=== PATIENT | male | born 1970 | race Caucasian/White ===

== ENCOUNTER → 2016-12-29 | Outpatient (CLI) | payer MEDICAID ==
[2016-12-29 12:11] LABS: Hemoglobin A1C 5.6 % (4.2-6.1)
== END | disposition home or self-care (01) ==
LOC: LABWHC1 10:19
PROVIDERS: ATTEND Internal Medicine
DX: R73.9 Hyperglycemia, unspecified (principal)
CPT/HCPCS: 36415; 82947; 83036

== ENCOUNTER → 2017-06-16 | Outpatient (CLI) | payer MEDICAID ==
[2017-06-16 09:38] LABS: Basophils % (A) 0 %; CH 31.4; CHCM 34.6; Eosinophils # (A) 0.1 k/uL (0-0.7); Eosinophils % (A) 2 %; HCT 43.7 % (39.0-53.0); HDW 2.62; HGB 14.7 gm/dL (13.0-17.5); Luc # (Auto) 0.14; Luc % (Auto) 3; Lymphocytes # (A) 1.5 k/uL (1.0-4.8); Lymphocytes % (A) 27 %; MCH 30.5 pg (25.0-35.0); MCHC 33.6 g/dL (31.0-37.0); Mean Platelet Volume 7.6; Monocytes # (A) 0.3 k/uL (0-1.0); Monocytes % (A) 5 %; Neutrophils # (A) 3.5 k/uL (1.3-7.7); Neutrophils % (A) 63 %; RDW 12.3 % (11.5-15.5); WBC 5.5 k/uL (3.8-10.6); WBC (Perox) 5.66
[2017-06-16 10:47] LABS: ALT 63 U/L (21-72); AST 37 U/L (17-59); Alkaline Phosphatase 57 U/L (38-126); Anion Gap 10 mmol/L; Blood Urea Nitrogen 16 mg/dL (9-20); Calcium 9.4 mg/dL (8.4-10.2); Carbon Dioxide 23 mmol/L (22-30); Chloride 111 mmol/L (98-107); Cholesterol 142 mg/dL (<200); Glucose 125 mg/dL (74-99); HDL Cholesterol 60 mg/dL (40-60); Non-African American GFR(MDRD) >60 (>60 ml/min/1.73 sqM); Potassium 4.2 mmol/L (3.5-5.1); Sodium 144 mmol/L (137-145); Total Bilirubin 0.2 mg/dL (0.2-1.3); Total Protein 6.8 g/dL (6.3-8.2)
== END | disposition home or self-care (01) ==
LOC: LABWHC1 09:05
PROVIDERS: ATTEND Internal Medicine
DX: E78.00 Pure hypercholesterolemia, unspecified (principal); Z13.29 Encounter for screening for other suspected endocrine disorder
CPT/HCPCS: 36415; 80053; 80061; 84439; 84443; 85025

== ENCOUNTER → 2017-10-13 | Outpatient (CLI) | payer MEDICAID ==
[2017-10-13 17:56] LABS: Hemoglobin A1C 5.6 % (4.0-6.0)
== END | disposition home or self-care (01) ==
LOC: LABWHC1 08:30
PROVIDERS: ATTEND Internal Medicine
DX: R73.9 Hyperglycemia, unspecified (principal)
CPT/HCPCS: 36415; 83036

== ENCOUNTER 2019-09-22 09:59 | Emergency (ER) | payer MEDICAID ==
[2019-09-22] MEDS ORDERED: KETOROLAC 30 MG/ML 1 ML VIAL IVP STA (10:06)
[2019-09-22] MEDS ORDERED: SODIUM CHLORIDE 0.9% 1,000 ML IV STA (10:06)
[2019-09-22] MEDS ORDERED: ASPIRIN 81 MG PO STA (10:06)
[2019-09-22 10:10] VITALS: TEMP 98.3
--- NOTE | 2019-09-22 10:20 | ED ---
Chest Pain HPI - General Stated Complaint: Chest pain Time Seen by Provider: 09/22/19 10:00 Source: patient, EMS, RN notes reviewed - History of Present Illness Initial Comments: This is a 49-year-old male with no personal history of heart disease and a strong family history who also is a smoker who presents by EMS with complaints of left shoulder pain it radiates into his neck and also radiates down his left arm. He states is about 6/10 severity at this time. He also has some slight dizziness associated with this. 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 He states it hurts to lay in the left side. He denies any other modifying factors at this time. MD Complaint: chest pain - Related Data Home Medications Medication Instructions Recorded Confirmed ALPRAZolam [Xanax] 0.5 mg PO TID 03/08/16 09/22/19 Aspirin 325 mg PO DAILY 03/08/16 09/22/19 Pravastatin Sodium [Pravachol] 40 mg PO DAILY 03/08/16 09/22/19 traMADol HCL [Ultram] 50 mg PO Q6HR PRN 03/08/16 09/22/19 Previous Rx's Medication Instructions Recorded Cyclobenzaprine [Flexeril] 10 mg PO TID #14 tab 09/22/19 Ibuprofen 800 mg PO Q6HR PRN #20 tablet 09/22/19 Meclizine [Antivert] 25 mg PO TID #20 tab 09/22/19 Allergies Allergy/AdvReac Type Severity Reaction Status Date / Time No Known Allergies Allergy Verified 09/22/19 10:37 Review of Systems ROS Statement: Those systems with pertinent positive or pertinent negative responses have been documented in the HPI. ROS Other: All systems not noted in ROS Statement are negative. EKG Findings - EKG Results: EKG: interpreted by SELINA, sinus rhythm (Normal sinus rhythm of 70. Interval 136 QRS duration 86 daily since QTC 44/436 this is a normal-appearing EKG) Past Medical History Past Medical History: Hyperlipidemia History of Any Multi-Drug Resistant Organisms: None Reported Past Surgical History: No Surgical Hx Reported Past Psychological History: Anxiety Smoking Status: Current every day smoker Past Alcohol Use History: Occasional Past Drug Use History: Marijuana - Past Family History Mother Family Medical History: Myocardial Infarction ([place]) Additional Family Medical History / Comment(s): 2011 PASSED FROM HEART ATTACK Brother(s) Family Medical History: Myocardial Infarction ([place]) Additional Family Medical History / Comment(s): HEART ATTACK PASSED 2010 General Exam - General Exam Comments Initial Comments: This is a well-developed well-nourished awake alert oriented 3 male General appearance: alert, in no apparent distress Head exam: Present: atraumatic, normocephalic, normal inspection Eye exam: Present: normal appearance, PERRL, EOMI. Absent: scleral icterus, conjunctival injection, periorbital swelling ENT exam: Present: normal exam, mucous membranes moist Neck exam: Present: normal inspection, full ROM, other (No stridor JVD or bruits). Absent: tenderness, meningismus, lymphadenopathy Respiratory exam: Present: normal lung sounds bilaterally, chest wall tenderness (Tenderness palpation over the left upper chest wall he does state this reproduces the pain.). Absent: respiratory distress, wheezes, rales, rhonchi, stridor Cardiovascular Exam: Present: regular rate, normal rhythm, normal heart sounds. Absent: systolic murmur, diastolic murmur, rubs, gallop, clicks GI/Abdominal exam: Present: soft, normal bowel sounds. Absent: distended, tenderness, guarding, rebound, rigid Extremities exam: Present: normal inspection, full ROM, normal capillary refill. Absent: tenderness, pedal edema, joint swelling, calf tenderness Back exam: Present: normal inspection Neurological exam: Present: alert, oriented X3, CN II-XII intact Psychiatric exam: Present: normal affect, normal mood Skin exam: Present: warm, dry, intact, normal color. Absent: rash Course Vital Signs 09/22/19 09/22/19 10:06 11:26 Temperature 98.3 F Pulse Rate 66 87 Respiratory 19 16 Rate Blood Pressure 153/95 135/84 O2 Sat by Pulse 98 97 Oximetry Chest Pain MDM - MDM I did review the imaging and report no acute findings. The patient is awake alert oriented his pain feels better after the Toradol shot. After discussion the patient's white patient will be discharged the presentation is Leander appears be secondary to 2 issues over 1 costochondritis #2 benign positional vertigo he'll be discharged on appropriate medication did recommend a outpatient stress test by his doctor he has had a CT angios done 2 years ago which was negative for any acute findings Disposition Clinical Impression: Costochondritis, Chest wall syndrome, Vertigo Disposition: HOME SELF-CARE Condition: Good Instructions (If sedation given, give patient instructions): Costochondritis (ED), Benign Paroxysmal Positional Vertigo (ED) Prescriptions: Meclizine [Antivert] 25 mg PO TID #20 tab Cyclobenzaprine [Flexeril] 10 mg PO TID #14 tab Ibuprofen 800 mg PO Q6HR PRN #20 tablet PRN Reason: Pain Is patient prescribed a controlled substance at d/c from ED?: No Referrals: None,Stated [REFERRING] - 1-2 days Roro Barros MD [Primary Care Provider] - 1-2 days
[2019-09-22 10:34] LABS: Basophils % (A) 0 %; Eosinophils # (A) 0.1 k/uL (0-0.7); Eosinophils % (A) 1 %; HCT 44.7 % (39.0-53.0); HGB 15.3 gm/dL (13.0-17.5); Lymphocytes # (A) 1.5 k/uL (1.0-4.8); Lymphocytes % (A) 23 %; MCHC 34.2 g/dL (31.0-37.0); MCV 90.7 fL (80.0-100.0); Mean Platelet Volume 8.8; Monocytes # (A) 0.4 k/uL (0-1.0); Monocytes % (A) 6 %; Neutrophils # (A) 4.4 k/uL (1.3-7.7); Neutrophils % (A) 68 %; Platelet Count 134 k/uL (150-450); RBC 4.94 m/uL (4.30-5.90); RDW 12.6 % (11.5-15.5); WBC 6.4 k/uL (3.8-10.6)
[2019-09-22 10:37] LABS: ALT 69 U/L (4-49); AST 55 U/L (17-59); African American GFR (CKD) >90 (>60 ml/min/1.73 sqM); Albumin 4.4 g/dL (3.5-5.0); Alkaline Phosphatase 83 U/L (38-126); Anion Gap 8 mmol/L; Blood Urea Nitrogen 13 mg/dL (9-20); Calcium 9.2 mg/dL (8.4-10.2); Carbon Dioxide 26 mmol/L (22-30); Chloride 107 mmol/L (98-107); Creatine Kinase 117 U/L (55-170); Glucose 128 mg/dL (74-99); Magnesium 2.2 mg/dL (1.6-2.3); Non-African American GFR(CKD) >90 (>60 ml/min/1.73 sqM); Sodium 141 mmol/L (137-145); Total Bilirubin 0.5 mg/dL (0.2-1.3); Total Protein 7.2 g/dL (6.3-8.2)
[2019-09-22 10:44] LABS: D-Dimer 0.23 mg/L FEU (<0.60); INR 0.9 (<1.2); Partial Thromboplastin Time 22.9 sec (22.0-30.0); Prothrombin Time 9.8 sec (9.0-12.0)
--- NOTE | 2019-09-22 10:46 | XR ---
EXAMINATION TYPE: XR chest 2V DATE OF EXAM: 09/22/2019 COMPARISON: Chest x-ray March 08, 2016. HISTORY: Chest pain. TECHNIQUE: Frontal and lateral views of the chest are obtained. FINDINGS: Overlying EKG leads are present. There is elevation and eventration anterior aspect right h emidiaphragm. There is no focal air space opacity, pleural effusion, or pneumothorax seen. The cardi ac silhouette size is upper limits of normal. The osseous structures are intact. IMPRESSION: No acute process identified.
[2019-09-22 12:51] VITALS: BP 159/93; PULSE 54
[2019-09-22 12:52] VITALS: RESP 16
== END 2019-09-22 12:55 | disposition home or self-care (01) ==
LOC: EC 09:59
DX: M94.0 Chondrocostal junction syndrome [Tietze] (principal); R42 Dizziness and giddiness; M25.512 Pain in left shoulder; M54.2 Cervicalgia; M79.602 Pain in left arm; E78.5 Hyperlipidemia, unspecified; F41.9 Anxiety disorder, unspecified; F17.200 Nicotine dependence, unspecified, uncomplicated; Z79.82 Long term (current) use of aspirin; Z79.899 Other long term (current) drug therapy; Z82.49 Family history of ischemic heart disease and other diseases of the circulatory system
CPT/HCPCS: 99285; 96374; 96361 ×3; 36415; 93005; 85379; 83880; 80053; 82550; 83690; 83735; 84484; 85025; 85610; 85730; 71046; J1885

== ENCOUNTER 2020-08-05 00:22 | Emergency (ER) | payer MEDICAID ==
--- NOTE | 2020-08-05 00:26 | ED ---
Alcohol HPI - General Stated Complaint: Fall Time Seen by Provider: 08/05/20 00:26 Source: RN notes reviewed, old records reviewed Mode of arrival: EMS Limitations: altered mental status - History of Present Illness Initial Comments: This is a 49-year-old male after slip and fall. Patient does admit to drinking today and is intoxicated here in the ER. Patient's brought in by EMS with no obvious injury is an abrasion to chin abrasion to forehead. Although is able to move all extremities without difficulty. Patient himself has no complaints, EMS was called by patient's regards to the patient's fall MD Complaint: alcohol intoxication Last Drink: just [employer] -: minute(s) Previous Visits for Alcohol Intoxication?: No Recent Trauma: Yes Associated Symptoms: denies other symptoms Treatments Prior to Arrival: none Chronic Alcohol Use: No - Related Data Home Medications Medication Instructions Recorded Confirmed ALPRAZolam [Xanax] 0.5 mg PO TID 03/08/16 09/22/19 Aspirin 325 mg PO DAILY 03/08/16 09/22/19 Pravastatin Sodium [Pravachol] 40 mg PO DAILY 03/08/16 09/22/19 traMADol HCL [Ultram] 50 mg PO Q6HR PRN 03/08/16 09/22/19 Previous Rx's Medication Instructions Recorded Cyclobenzaprine [Flexeril] 10 mg PO TID #14 tab 09/22/19 Ibuprofen 800 mg PO Q6HR PRN #20 tablet 09/22/19 Meclizine [Antivert] 25 mg PO TID #20 tab 09/22/19 Allergies Allergy/AdvReac Type Severity Reaction Status Date / Time No Known Allergies Allergy Verified 08/05/20 00:30 Review of Systems ROS Statement: Those systems with pertinent positive or pertinent negative responses have been documented in the HPI. ROS Other: All systems not noted in ROS Statement are negative. Past Medical History Past Medical History: Hyperlipidemia History of Any Multi-Drug Resistant Organisms: None Reported Past Surgical History: No Surgical Hx Reported Past Psychological History: Anxiety Past Alcohol Use History: Occasional Past Drug Use History: Marijuana - Past Family History Mother Family Medical History: Myocardial Infarction ([place]) Additional Family Medical History / Comment(s): 2010 PASSED FROM HEART ATTACK Brother(s) Family Medical History: Myocardial Infarction ([place]) Additional Family Medical History / Comment(s): HEART ATTACK PASSED 2010 General Exam General appearance: alert, appears intoxicated Head exam: Present: normocephalic, normal inspection. Absent: atraumatic (Abrasion to chin and forehead) Eye exam: Present: normal appearance, PERRL, EOMI. Absent: scleral icterus, conjunctival injection, periorbital swelling ENT exam: Present: normal exam, mucous membranes moist Neck exam: Present: normal inspection. Absent: tenderness, meningismus, lymphadenopathy Respiratory exam: Present: normal lung sounds bilaterally. Absent: respiratory distress, wheezes, rales, rhonchi, stridor Cardiovascular Exam: Present: regular rate, normal rhythm, normal heart sounds. Absent: systolic murmur, diastolic murmur, rubs, gallop, clicks GI/Abdominal exam: Present: soft, normal bowel sounds. Absent: distended, tenderness, guarding, rebound, rigid Extremities exam: Present: normal inspection, full ROM, normal capillary refill. Absent: tenderness, pedal edema, joint swelling, calf tenderness Back exam: Present: normal inspection Neurological exam: Present: alert, oriented X3, CN II-XII intact Psychiatric exam: Present: normal affect, normal mood Skin exam: Present: warm, dry, intact, normal color. Absent: rash Course Vital Signs 08/05/20 00:24 Temperature 97.7 F Pulse Rate 87 Respiratory 16 Rate Blood Pressure 144/88 O2 Sat by Pulse 96 Oximetry - Reevaluation(s) Reevaluation #1: 08/05/20 01:38 Medical record is reviewed Reevaluation #2: 08/05/20 01:38 Patient becoming more lucid here in the ER, is at bedside. Also informed results being negative, questions are answered Reevaluation #3: 08/05/20 01:38 Patient is able to be discharged to care of his Medical Decision Making - Medical Decision Making 49 male to the ER for evaluation of fall with alcohol intoxication. Patient isn't toxic but no other individual distress. Patient will be discharged - Lab Data Lab Results 08/05/20 Range/Units 00:32 POC Glucose (mg/dL) 110 H (75-99) mg/dL POC Glu Meat Counter Clerk ID Elvai Guevara - EKG Data -: EKG Interpreted by Me (EKG shows sinus rhythm 96 KS 140 QRS 88 QTc 447) Disposition Clinical Impression: Fall, Alcohol intoxication Disposition: HOME SELF-CARE Condition: Good Instructions (If sedation given, give patient instructions): Alcohol Intoxication (ED) Is patient prescribed a controlled substance at d/c from ED?: No Referrals: Roro Barros MD [Primary Care Provider] - 1-2 days
[2020-08-05 00:30] VITALS: RESP 16
[2020-08-05 00:33] LABS: Glucose,Whole Blood 110 mg/dL (75-99)
--- NOTE | 2020-08-05 01:05 | CT ---
EXAM: CT Head Without Intravenous Contrast CLINICAL HISTORY: ITS.REASON CT Reason: fal TECHNIQUE: Axial computed tomography images of the head/brain without intravenous contrast. CTDI is 45.285 mGy and DLP is 1155 mGy-cm. This CT exam was performed using one or more of the following dose reduction techniques: automated exposure control, adjustment of the mA and/or kV according to patient size, and/or use of iterative reconstruction technique. COMPARISON: 03/08/2016 FINDINGS: Brain: The parenchyma is stable from the previous examination. No acute intracranial hemorrhage or mass effect identified. The nick-white matter differentiation is preserved. Ventricles: Unremarkable. No ventriculomegaly. Bones/joints: Unremarkable. No acute fracture. Soft tissues: No significant overlying acute traumatic soft tissue abnormality identified radiographically. No radiopaque foreign body. Sinuses: Unremarkable as visualized. No acute sinusitis. Mastoid air cells: Unremarkable as visualized. No mastoid effusion. IMPRESSION: No acute intracranial process identified. EXAM: CT Cervical Spine Without Intravenous Contrast CLINICAL HISTORY: ITS.REASON CT Reason: fal TECHNIQUE: Axial computed tomography images of the cervical spine without intravenous contrast. CTDI is 23.985 mGy and DLP is 671.3 mGy-cm. This CT exam was performed using one or more of the following dose reduction techniques: automated exposure control, adjustment of the mA and/or kV according to patient size, and/or use of iterative reconstruction technique. COMPARISON: 03/08/2016 FINDINGS: Limitations: There is mild motion artifact from C5 inferiorly which causes some image degradation. Vertebrae: The vertebral bodies are intact without acute osseous traumatic injury. No anterolisthesis or retrolisthesis is identified. The facet joints are well aligned without subluxation or dislocation. The spinous processes are intact. Discs/spinal canal/neural foramina: Stable disc space narrowing with marginal hypertrophic changes noted anteriorly at C2-3, C3-4 and circumferentially at C5-6. Mild posterior osteophytes are noted at C6-7. No severe osseous canal stenosis identified. Soft tissues: Unremarkable. Lung apices: The visualized lung apices demonstrate no radiographic evidence for significant acute traumatic injury. IMPRESSION: No acute osseous traumatic injury or significant abnormal alignment involving the cervical spine.
--- NOTE | 2020-08-05 01:08 | XR ---
EXAM: XR Pelvis, 1 or 2 Views CLINICAL HISTORY: ITS.REASON XR Reason: fall TECHNIQUE: Frontal view of the pelvis. COMPARISON: No relevant prior studies available. FINDINGS: Bones/joints: Unremarkable. No acute fracture. No dislocation. Soft tissues: Unremarkable. IMPRESSION: Normal pelvis radiograph.
--- NOTE | 2020-08-05 01:09 | XR ---
EXAM: XR Chest, 1 View CLINICAL HISTORY: ITS.REASON XR Reason: fall TECHNIQUE: Frontal view of the chest. COMPARISON: No relevant prior studies available. FINDINGS: Lungs: Diminished lung volumes. No definite focal consolidation. The pulmonary vasculature demonstrates no significant radiographic abnormality. Pleural space: No large pleural effusion or definite pneumothorax, accounting for supine technique. Heart: Unremarkable. No cardiomegaly. Mediastinum: No mediastinal widening. The trachea is midline. Bones/joints: Hypertrophic degenerative changes of thoracic spine. No definite acute osseous abnormality. IMPRESSION: No significant acute traumatic injury to the chest/thorax identified radiographically.
[2020-08-05 02:38] VITALS: BP 106/62; PULSE 80; TEMP 97.5
== END 2020-08-05 02:38 | disposition home or self-care (01) ==
LOC: EC 00:22
DX: F10.129 Alcohol abuse with intoxication, unspecified (principal); E78.5 Hyperlipidemia, unspecified; F41.9 Anxiety disorder, unspecified; Y90.9 Presence of alcohol in blood, level not specified; Z79.82 Long term (current) use of aspirin; Z79.899 Other long term (current) drug therapy
CPT/HCPCS: 36415; 70450; 71045; 72125; 72170; 82075; 99285

== ENCOUNTER 2021-01-31 09:00 | Emergency (ER) | payer MEDICAID ==
[2021-01-31 09:04] VITALS: BP 193/96; PULSE 95; RESP 16; TEMP 99
[2021-01-31] MEDS ORDERED: KETOROLAC 15 MG/ML 1 ML VIAL IM STA (09:17)
--- NOTE | 2021-01-31 09:26 | ED ---
General Adult HPI - General Chief complaint: Fall Stated complaint: Rib pain Time Seen by Provider: 01/31/21 09:00 Source: patient, RN notes reviewed, old records reviewed Mode of arrival: ambulatory Limitations: no limitations - History of Present Illness Initial comments: This is a 50-year-old male who presents emergency Department complaining that he has left-sided rib pain from falling. Patient states about a week ago he fell off the back of a pickup landed on his left arm which hit him in the ribs and ever since then he's had rib pain that radiates from the front of his ribs to the back on the left side. Patient states it hurts take a deep breath but is not short of breath. Patient states movement or taking a deep breath or sneezing makes it considerably worse. Patient denies hitting his head or neck on the fall patient denies any other injury at this time. Patient denies any recent fever chills or cough per patient denies any abdominal pain. - Related Data Home Medications Medication Instructions Recorded Confirmed ALPRAZolam [Xanax] 0.5 mg PO TID 03/08/16 09/22/19 Aspirin 325 mg PO DAILY 03/08/16 09/22/19 Pravastatin Sodium [Pravachol] 40 mg PO DAILY 03/08/16 09/22/19 traMADol HCL [Ultram] 50 mg PO Q6HR PRN 03/08/16 09/22/19 Previous Rx's Medication Instructions Recorded Cyclobenzaprine [Flexeril] 10 mg PO TID #14 tab 09/22/19 Ibuprofen 800 mg PO Q6HR PRN #20 tablet 09/22/19 Meclizine [Antivert] 25 mg PO TID #20 tab 09/22/19 Ketorolac [Toradol] 10 mg PO Q6HR #15 tab 01/31/21 Allergies Allergy/AdvReac Type Severity Reaction Status Date / Time No Known Allergies Allergy Verified 01/31/21 09:01 Review of Systems ROS Statement: Those systems with pertinent positive or pertinent negative responses have been documented in the HPI. ROS Other: All systems not noted in ROS Statement are negative. Past Medical History Past Medical History: Hyperlipidemia History of Any Multi-Drug Resistant Organisms: None Reported Past Surgical History: No Surgical Hx Reported Past Psychological History: Anxiety Smoking Status: Current every day smoker Past Alcohol Use History: Occasional Past Drug Use History: Marijuana - Past Family History Mother Family Medical History: Myocardial Infarction ([place]) Additional Family Medical History / Comment(s): 2011 PASSED FROM HEART ATTACK Brother(s) Family Medical History: Myocardial Infarction ([place]) Additional Family Medical History / Comment(s): HEART ATTACK PASSED 2010 General Exam - General Exam Comments Initial Comments: GENERAL: Patient is well-developed and well-nourished. Patient is nontoxic and well- hydrated and is in moderate distress. ENT: Neck is soft and supple. No significant lymphadenopathy is noted. Oropharynx is clear. Moist mucous membranes. Neck has full range of motion without eliciting any pain. EYES: The sclera were anicteric and conjunctiva were pink and moist. Extraocular movements were intact and pupils were equal round and reactive to light. Eyelids were unremarkable. PULMONARY: Unlabored respirations. Good breath sounds bilaterally. No audible rales rhonchi or wheezing was noted. CARDIOVASCULAR: There is a regular rate and rhythm without any murmurs gallops or rubs. Patient is exquisitely tender left lateral ribs. ABDOMEN: Soft and nontender with normal bowel sounds. SKIN: Skin is clear with no lesions or rashes and otherwise unremarkable. NEUROLOGIC: Patient is alert and oriented x3. Cranial nerves II through XII are grossly intact. Motor and sensory are also intact. Normal speech, volume and content. Symmetrical smile. MUSCULOSKELETAL: Normal extremities with adequate strength and full range of motion. LYMPHATICS: No significant lymphadenopathy is noted PSYCHIATRIC: Normal psychiatric evaluation. Limitations: no limitations Course Vital Signs 01/31/21 09:01 Temperature 99.0 F Pulse Rate 95 Respiratory 16 Rate Blood Pressure 193/96 O2 Sat by Pulse 100 Oximetry Medical Decision Making - Medical Decision Making Patient received Toradol emergency department. X-ray of the ribs and chest show no acute abnormality. Clinically the patient has rib fractures. Patient will be given incentive spirometer and pain medication. Disposition Clinical Impression: Fall, Fracture, rib Disposition: HOME SELF-CARE Condition: Good Instructions (If sedation given, give patient instructions): Fall Prevention (ED), Rib Fracture (ED) Additional Instructions: Patient should take Toradol is on tramadol and Tylenol for pain. Prescriptions: Ketorolac [Toradol] 10 mg PO Q6HR #15 tab Is patient prescribed a controlled substance at d/c from ED?: No Referrals: Roro Barros MD [Primary Care Provider] - 1-2 days Time of Disposition: 10:07
--- NOTE | 2021-01-31 09:43 | XR ---
EXAMINATION TYPE: PA chest and left rib series, 5 views DATE OF EXAM: 01/31/2021 Comparison: 08/05/2020 Clinical History: 50-year-old male with left-sided rib pain after Fall Findings: Heart upper limits of normal size. Aorta and pulmonary vasculature within normal limits. Some strandy atelectasis at the left base. No consolidation, pneumothorax, or pleural effusion. No displaced left rib fractures seen. Impression: No displaced left rib fracture is seen. No acute cardiopulmonary process.
== END 2021-01-31 10:23 | disposition home or self-care (01) ==
LOC: EC 09:00
DX: S22.32XA Fracture of one rib, left side, initial encounter for closed fracture (principal); E78.5 Hyperlipidemia, unspecified; F17.200 Nicotine dependence, unspecified, uncomplicated; F12.90 Cannabis use, unspecified, uncomplicated; W18.09XA Striking against other object with subsequent fall, initial encounter
CPT/HCPCS: 96372; 99283

== ENCOUNTER 2024-01-01 07:51 | Day surgery (SDC) | payer OTHER ==
[~2024-01-01 07:51] MED LIST: LACTATED RINGERS 1,000 ML IV SCH; LIDOCAINE 1% (10MG/ML) FOR IV START INTRADERMA PRN; MIDAZOLAM 2 MG/2 ML VIAL IV PRN
[2024-01-01] MEDS: IV FLUID CONTINUATION 1,000 ML IV ONE (08:20)
[2024-01-01 08:28] VITALS: RESP 16; TEMP 98
[2024-01-01 08:46] LABS: Glucose,Whole Blood 144 mg/dL (70-110)
[2024-01-01] MEDS ORDERED: PROPOFOL 10 MG/ML 20 ML VIAL IV ONE (08:50)
--- NOTE | 2024-01-01 09:08 | P.PCN ---
Date of Procedure: 01/01/24 Procedure(s) Performed: BRIEF HISTORY: Patient is a 53-year-old pleasant white male scheduled for an elective colonoscopy as a part of screening for colon cancer and family history of colon cancer. His father was diagnosed with colon cancer at age 58. PROCEDURE PERFORMED: Colonoscopy with snare polypectomy. PREOPERATIVE DIAGNOSIS: Screening for colon cancer and family history of colon cancer. IV sedation per Anesthesia. PROCEDURE: After informed consent was obtained, the patient, was brought into the endoscopy unit. IV sedation was administered by Anesthesia under continuous monitoring. Digital rectal examination was normal. Initially the Olympus CF-160 flexible video colonoscope was then inserted in the rectum, gradually advanced into the cecum without any difficulty. Careful examination was performed as the scope was gradually being withdrawn. Ileocecal valve and the appendiceal orifice were visualized and appeared normal. Prep was poor in several areas of the colon.. Mucosa of the cecum, a 5 mm polyp was removed by cold snare polypectomy. Rest of the ascending colon, transverse colon, appeared normal. The descending colon there was a 5 mm polyp that was removed by cold snare polypectomy. Rest of the descending colon, sigmoid colon, and rectum appeared normal. Prep in the left colon. Retroflexion was performed in the rectum and no lesions were seen. The patient tolerated the procedure well. IMPRESSION: 5 mm cecal polyp status post cold snare polypectomy 5 mm descending colon polyp status post polypectomy Poor prep involving the left colon RECOMMENDATIONS: Findings of this examination were discussed with the patient as well as her family. She was advised to follow-up with the biopsy results. If the biopsy reveals adenoma he can have repeat colonoscopy 5 years.
[2024-01-01 09:12] VITALS: BP 116/70; PULSE 78
== END 2024-01-01 09:45 | disposition home or self-care (01) ==
LOC: ORWHC2ENDO 07:51
PROVIDERS: ATTEND Internal Medicine Gastroenterology
DX: Z12.11 Encounter for screening for malignant neoplasm of colon (principal); D12.0 Benign neoplasm of cecum; D12.4 Benign neoplasm of descending colon; Z80.0 Family history of malignant neoplasm of digestive organs; E11.9 Type 2 diabetes mellitus without complications; F17.210 Nicotine dependence, cigarettes, uncomplicated; Z79.84 Long term (current) use of oral hypoglycemic drugs; Z79.899 Other long term (current) drug therapy; Z79.82 Long term (current) use of aspirin
CPT/HCPCS: 45385; J2704; 88305